=== PATIENT | female | born 1995 | race Caucasian/White ===

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

== ENCOUNTER 2017-07-30 01:16 | Emergency (ER) | END 2017-07-30 06:03 | disposition left against medical advice (07) ==

== ENCOUNTER 2017-07-31 01:20 | Emergency (ER) | END 2017-07-31 04:46 | disposition home or self-care (01) ==

== ENCOUNTER 2017-10-23 11:53 | Emergency (ER) | END 2017-10-23 13:00 | disposition home or self-care (01) ==